=== PATIENT | male | born 1980 | race African-American/Black ===

== ENCOUNTER 2018-02-21 09:57 | Inpatient (IN) | payer OTHER ==
[2018-02-21 10:13] VITALS: BMI 26.2
--- NOTE | 2018-02-21 11:05 | HP ---
CIWA Score - CIWA Score Nausea/Vomitin-Mild Nausea/No Vomiting Muscle Tremors: 1-None Visible, but [place] Anxiety: 1-Mildly Anxious Agitation: 4-Moderately Restless Paroxysmal Sweats: 1-Minimal Palms Moist Orientation: 1-Uncertain about Date Tacttile Disturbances: 0-None Auditory Disturbances: 0-None Visual Disturbances: 1-Very Mild Sensitivity Headache: 2-Mild CIWA-Ar Total Score: 12 Admission ROS BHS - HPI Chief Complaint: I want to clean myself out, start new, do better, stop using. Allergies/Adverse Reactions: Allergies Allergy/AdvReac Type Severity Reaction Status Date / Time eggplant AdvReac Intermediate Swelling Uncoded 02/21/18 11:00 History of Present Illness: 37 yo gentleman here for detox from alcohol, also using cocaine. First time here but states he has had multiple previous detox admissions elsewhere - last one in December in [facility]. No seizures, no black outs. Prefers valium detox. Exam Limitations: Clinical Condition - Ebola screening Have you traveled outside of the country in the last 21 days: No (N) Have you had contact with anyone from an Ebola affected area: No Have you been sick,other than usual withdrawal symptoms: No Do you have a fever: No - Review of Systems Constitutional: Loss of Appetite, Malaise, Night Sweats, Changes in sleep, Weakness EENT: reports: Blurred Vision Respiratory: reports: No Symptoms reported Cardiac: reports: No Symptoms Reported GI: reports: Poor Appetite, Poor Fluid Intake, Indigestion : reports: Frequency Integumentary: reports: Dryness Neuro: reports: Headache, Tremors Hematology: reports: No Symptoms Reported Psychiatric: reports: Judgement Intact, Mood/Affect Appropiate Other Systems: Reviewed and Negative Patient History - Patient Medical History Hx Asthma: No Hx Cancer: No Hx Cardiac Disorders: No Hx Congestive Heart Failure: No Hx Hypertension: No Hx Hypercholesterolemia: No Hx Pacemaker: No HX Cerebrovascular Accident: No Hx Seizures: No Hx Diabetes: No Hx Gastrointestinal Disorders: No Hx Liver Disease: No Hx Genitourinary Disorders: No Hx Sexually Transmitted Disorders: No Hx Renal Disease (ESRD): No Hx Thyroid Disease: No Hx Human Immunodeficiency Virus (HIV): No Hx Hepatitis C: No Hx Depression: No Hx Suicide Attempt: No Hx Bipolar Disorder: No Hx Schizophrenia: No - Patient Surgical History Past Surgical History: No - PPD History Previous Implant?: Yes Documented Results: Negative w/o proof Implanted On Prior R Admission?: No PPD to be Administered?: Yes - Reproductive History Patient is a Female of Child Bearing Age (11 -55 yrs old): No (male) - Smoking Cessation Smoking history: Current every day smoker Have you smoked in the past 12 months: Yes Aproximately how many cigarettes per day: 10 Initiated information on smoking cessation: Yes 'Breaking Loose' booklet given: 02/21/18 (give on floor) - Substance & Tx. History Hx Alcohol Use: Yes Hx Substance Use: Yes Substance Use Type: Alcohol, Cocaine, Marijuana Hx Substance Use Treatment: Yes (detox, rehab) - Substances Abused alcohol Route: Oral Frequency: Daily Amount used: 1 liter of vodka Age of first use: 7 Date of Last Use: 02/20/18 cocaine Route: Smoking Amount used: $150 Age of first use: 22 Date of Last Use: 02/20/18 marijuana Frequency: Daily Amount used: 2 bags Age of first use: 12 Date of Last Use: 02/20/18 Family Disease History - Family Disease History Family Disease History: Other: Father (living, no contact, hx etoh/drugs), Mother (living, hx etoh/drugs), Brother (two living, one gunshot), Sister (two - living, healthy) Admission Physical Exam [facility] - Vital Signs Vital Signs: Vital Signs - 24 hr 02/21/18 10:12 Temperature 96.3 F L Pulse Rate 64 Respiratory 18 Rate Blood Pressure 111/50 - Physical General Appearance: Yes: Nourished, Appropriately Dressed, Mild Distress, Irritable, Anxious HEENTM: Yes: Hearing grossly Normal, Normocephalic, Normal Voice Respiratory: Yes: Normal Breath Sounds, No Respiratory Distress Neck: Yes: No masses,lesions,Nodules, Supple Breast: Yes: Breast Exam Deferred Cardiology: Yes: Regular Rhythm, Regular Rate Abdominal: Yes: Flat, Soft Genitourinary: Yes: Frequency Back: Yes: Normal Inspection Extremities: Yes: Normal Capillary Refill, Normal Inspection Neurological: Yes: Fully Oriented, Alert, Motor Strength 5/5, Normal Mood/Affect , Normal Response Integumentary: Yes: Normal Color, Warm Lymphatic: Yes: Within Normal Limits - Diagnostic (1) Alcohol dependence with withdrawal Current Visit: Yes Status: Acute Qualifiers: Complication of substance-induced condition: uncomplicated Qualified Code(s ): F10.230 - Alcohol dependence with withdrawal, uncomplicated (2) Cocaine dependence Current Visit: Yes Status: Acute Qualifiers: Substance use status: uncomplicated Qualified Code(s): F14.20 - Cocaine dependence, uncomplicated (3) Marijuana dependence Current Visit: Yes Status: Chronic (4) Nicotine dependence Current Visit: Yes Status: Chronic Qualifiers: Nicotine product type: cigarettes Substance use status: uncomplicated Qualified Code(s): F17.210 - Nicotine dependence, cigarettes, uncomplicated Cleared for Admission S - Detox or Rehab [facility] Level of Care: Medically Managed Detox Regimen/Protocol: Librium [facility] Breath Alcohol Content Breath Alcohol Content: 0 Urine Drug Screen - Results Drug Screen Negative: No Urine Drug Screen Results: THC-Marijuana, PITER-Cocaine
[2018-02-21] MEDS ORDERED: diazePAM 5 MG TABLET PO PRN (11:12)
[2018-02-21] MEDS ORDERED: IBUPROFEN 400 MG TABLET (FP) PO PRN (11:12)
[2018-02-21] MEDS ORDERED: MAGNESIUM HYDROX 2400MG/30ML ORAL SUSPENSION 30 ML CUP PO PRN (11:12)
[2018-02-21] MEDS ORDERED: MAG HYDROX/AL HYDROX/SIMETH 30 ML UNIT-DOSE CUP PO PRN (11:12)
[2018-02-21] MEDS ORDERED: hydrOXYzine PAMOATE 25 MG CAPSULE (FP) PO PRN (11:12)
[2018-02-21] MEDS ORDERED: ACETAMINOPHEN 325 MG TABLET (FP) PO PRN (11:12)
[2018-02-21] MEDS ORDERED: LOPERAMIDE HCL 2 MG CAPSULE PO PRN (11:12)
[2018-02-21] MEDS ORDERED: NICOTINE POLACRILEX 4 MG GUM BUC PRN (11:12)
[2018-02-21] MEDS ORDERED: MAGNESIUM CITRATE 300 ML BOTTLE PO PRN (11:12)
[2018-02-21] MEDS ORDERED: diazePAM 5 MG TABLET PO ONE (15:00)
[2018-02-21] MEDS: diazePAM 5 MG TABLET PO SCH ×2 (15:01→22:12)
[2018-02-21] MEDS ORDERED: MELATONIN 5 MG TABLETS PO PRN (22:00)
[2018-02-21] MEDS: THIAMINE HCL 100 MG TABLET (FP) PO SCH (22:12)
[2018-02-22] MEDS: diazePAM 5 MG TABLET PO SCH ×3 (06:48→22:42)
[2018-02-22] MEDS: PRENATAL VITAMINS W/ FOLIC ACID TABLET (FP) PO SCH (10:41)
--- NOTE | 2018-02-22 10:47 | EKG ---
Test Reason : Blood Pressure : / mmHG Vent. Rate : 050 BPM Atrial Rate : 050 BPM P-R Int : 142 ms QRS Dur : 092 ms QT Int : 438 ms P-R-T Axes : 056 070 056 degrees QTc Int : 399 ms SINUS BRADYCARDIA OTHERWISE NORMAL ECG NO PREVIOUS ECGS AVAILABLE Confirmed by DARELL DUQUE MD ([id number]) on 02/22/2018 10:47:42 AM Referred By: Confirmed By:DARELL DUQUE MD
--- NOTE | 2018-02-22 11:09 | PN ---
S CIWA - CIWA Score Nausea/Vomitin-No Nausea/No Vomiting Muscle Tremors: 4-Moderate,w/Arms Extend Anxiety: 3 Agitation: 3 Paroxysmal Sweats: 3 Orientation: 0-Oriented Tacttile Disturbances: 0-None Auditory Disturbances: 0-None Visual Disturbances: 0-None Headache: 0-None Present CIWA-Ar Total Score: 13 S Progress Note (SOAP) Subjective: chills sweats nausea body aches interrupted sleep Objective: 02/22/18 11:07 Vital Signs Temperature 97.9 F 02/22/18 10:00 Pulse Rate 65 02/22/18 10:00 Respiratory Rate 16 02/22/18 10:00 Blood Pressure 111/58 02/22/18 10:00 O2 Sat by Pulse Oximetry (%) labs pending [id number] ambulating no acute distress Assessment: 02/22/18 11:08 withdrawal sx Plan: continue detox increase fluids f/u pending labs
[2018-02-22 11:16] LABS: MCHC 32.6 g/dl (32.0-35.9); MEAN CELL VOLUME 76.9 fl (80-96); MEAN PLT VOLUME 9.4 fl (7.5-11.1); PLATELET COUNT 206 K/MM3 (134-434); RDW 16.2 % (11.9-15.9); WHITE BLOOD COUNT 7.8 K/mm3 (4.0-10.0)
[2018-02-22 11:29] LABS: ALBUMIN 2.9 g/dl (3.4-5.0); ANION GAP 2 (8-16); BLOOD UREA NITROGEN 14 mg/dL (7-18); CALCIUM 8.1 mg/dL (8.5-10.1); CHLORIDE 108 mmol/L (98-107); CO2 31 mmol/L (21-32); CREATININE 1.1 mg/dL (0.7-1.3); GLUCOSE,RANDOM 89 mg/dL (74-106); POTASSIUM 4.3 mmol/L (3.5-5.1); SGOT/AST 19 U/L (15-37); SGPT/ALT 26 U/L (12-78); SODIUM 141 mmol/L (136-145)
[2018-02-22 11:31] LABS: ALK PHOS 49 U/L (45-117); BILIRUBIN,TOTAL 0.4 mg/dL (0.2-1.0); TOT PROT 6.3 g/dl (6.4-8.2)
[2018-02-22 12:44] LABS: SICKLE CELL SCREEN NEGATIVE (NEGATIVE)
[2018-02-22] MEDS: P-EPHED 60MG/TRIPROLIDI 2.5MG TABLET PO PRN (20:14)
[2018-02-22] MEDS: THIAMINE HCL 100 MG TABLET (FP) PO SCH (22:42)
[2018-02-23] MEDS: guaiFENesin/D-METHORPHAN HB 10 ML UNIT-DOSE CUPS PO PRN ×2 (07:26→19:40)
[2018-02-23] MEDS: MENTHOL/PHENOL 1 EACH UD MM PRN ×2 (07:27→21:15)
--- NOTE | 2018-02-23 09:05 | PN ---
[facility] CIWA - CIWA Score Nausea/Vomitin-Mild Nausea/No Vomiting Muscle Tremors: 3 Anxiety: 3 Agitation: 3 Paroxysmal Sweats: 1-Minimal Palms Moist Orientation: 0-Oriented Tacttile Disturbances: 0-None Auditory Disturbances: 0-None Visual Disturbances: 0-None Headache: 0-None Present CIWA-Ar Total Score: 11 S Progress Note (SOAP) Subjective: sweat tremor cold hot body aches mild nausea Objective: 02/23/18 09:05 Vital Signs Temperature 98.1 F 02/23/18 06:00 Pulse Rate 72 02/23/18 06:00 Respiratory Rate 18 02/23/18 06:00 Blood Pressure 134/75 02/23/18 06:00 O2 Sat by Pulse Oximetry (%) Laboratory Last Values WBC 7.8 K/mm3 (4.0-10.0) 02/22/18 08:00 RBC 5.20 M/mm3 (4.00-5.60) 02/22/18 08:00 Hgb 13.0 GM/dL (11.7-16.9) 02/22/18 08:00 Hct 40.0 % (35.4-49) 02/22/18 08:00 MCV 76.9 fl (80-96) L 02/22/18 08:00 MCH 25.0 pg (25.7-33.7) L 02/22/18 08:00 MCHC 32.6 g/dl (32.0-35.9) 02/22/18 08:00 RDW 16.2 % (11.9-15.9) H 02/22/18 08:00 Plt Count 206 K/MM3 (134-434) 02/22/18 08:00 MPV 9.4 fl (7.5-11.1) 02/22/18 08:00 Sickle Cell Screen Negative (NEGATIVE) 02/22/18 08:00 Sodium 141 mmol/L (136-145) 02/22/18 08:00 Potassium 4.3 mmol/L (3.5-5.1) 02/22/18 08:00 Chloride 108 mmol/L (98-107) H 02/22/18 08:00 Carbon Dioxide 31 mmol/L (21-32) 02/22/18 08:00 Anion Gap 2 (8-16) L 02/22/18 08:00 BUN 14 mg/dL (7-18) 02/22/18 08:00 Creatinine 1.1 mg/dL (0.7-1.3) 02/22/18 08:00 Creat Clearance w eGFR > 60 (>60) 02/22/18 08:00 Random Glucose 89 mg/dL (74-106) 02/22/18 08:00 Calcium 8.1 mg/dL (8.5-10.1) L 02/22/18 08:00 Total Bilirubin 0.4 mg/dL (0.2-1.0) 02/22/18 08:00 AST 19 U/L (15-37) 02/22/18 08:00 ALT 26 U/L (12-78) 02/22/18 08:00 Alkaline Phosphatase 49 U/L (45-117) 02/22/18 08:00 Total Protein 6.3 g/dl (6.4-8.2) L 02/22/18 08:00 Albumin 2.9 g/dl (3.4-5.0) L 02/22/18 08:00 RPR Titer Nonreactive (NONREACTIVE) 02/22/18 08:00 HIV 1&2 Antibody Screen Negative 02/22/18 08:00 HIV P24 Antigen Negative 02/22/18 08:00 lab noted Assessment: 02/23/18 09:06 withdrawal sx Plan: continue detox
[2018-02-23] MEDS: PRENATAL VITAMINS W/ FOLIC ACID TABLET (FP) PO SCH (10:24)
[2018-02-23] MEDS: diazePAM 5 MG TABLET PO SCH ×2 (10:25→23:19)
[2018-02-23] MEDS: THIAMINE HCL 100 MG TABLET (FP) PO SCH (23:19)
[2018-02-24] MEDS: MENTHOL/PHENOL 1 EACH UD MM PRN ×2 (04:36→10:30)
[2018-02-24] MEDS: guaiFENesin/D-METHORPHAN HB 10 ML UNIT-DOSE CUPS PO PRN ×2 (04:37→10:16)
[2018-02-24] MEDS: P-EPHED 60MG/TRIPROLIDI 2.5MG TABLET PO PRN (10:16)
[2018-02-24] MEDS: diazePAM 5 MG TABLET PO SCH (10:16)
[2018-02-24] MEDS: PRENATAL VITAMINS W/ FOLIC ACID TABLET (FP) PO SCH (10:16)
--- NOTE | 2018-02-24 10:43 | PN ---
S Progress Note (SOAP) Subjective: feeling better no tremor less sweat tolerated food and fluid well Objective: 02/24/18 10:45 Vital Signs Temperature 98.6 F 02/24/18 10:35 Pulse Rate 99 H 02/24/18 10:35 Respiratory Rate 18 02/24/18 10:35 Blood Pressure 130/71 02/24/18 10:35 O2 Sat by Pulse Oximetry (%) Laboratory Last Values WBC 7.8 K/mm3 (4.0-10.0) 02/22/18 08:00 RBC 5.20 M/mm3 (4.00-5.60) 02/22/18 08:00 Hgb 13.0 GM/dL (11.7-16.9) 02/22/18 08:00 Hct 40.0 % (35.4-49) 02/22/18 08:00 MCV 76.9 fl (80-96) L 02/22/18 08:00 MCH 25.0 pg (25.7-33.7) L 02/22/18 08:00 MCHC 32.6 g/dl (32.0-35.9) 02/22/18 08:00 RDW 16.2 % (11.9-15.9) H 02/22/18 08:00 Plt Count 206 K/MM3 (134-434) 02/22/18 08:00 MPV 9.4 fl (7.5-11.1) 02/22/18 08:00 Sickle Cell Screen Negative (NEGATIVE) 02/22/18 08:00 Sodium 141 mmol/L (136-145) 02/22/18 08:00 Potassium 4.3 mmol/L (3.5-5.1) 02/22/18 08:00 Chloride 108 mmol/L (98-107) H 02/22/18 08:00 Carbon Dioxide 31 mmol/L (21-32) 02/22/18 08:00 Anion Gap 2 (8-16) L 02/22/18 08:00 BUN 14 mg/dL (7-18) 02/22/18 08:00 Creatinine 1.1 mg/dL (0.7-1.3) 02/22/18 08:00 Creat Clearance w eGFR > 60 (>60) 02/22/18 08:00 Random Glucose 89 mg/dL (74-106) 02/22/18 08:00 Calcium 8.1 mg/dL (8.5-10.1) L 02/22/18 08:00 Total Bilirubin 0.4 mg/dL (0.2-1.0) 02/22/18 08:00 AST 19 U/L (15-37) 02/22/18 08:00 ALT 26 U/L (12-78) 02/22/18 08:00 Alkaline Phosphatase 49 U/L (45-117) 02/22/18 08:00 Total Protein 6.3 g/dl (6.4-8.2) L 02/22/18 08:00 Albumin 2.9 g/dl (3.4-5.0) L 02/22/18 08:00 RPR Titer Nonreactive (NONREACTIVE) 02/22/18 08:00 HIV 1&2 Antibody Screen Negative 02/22/18 08:00 HIV P24 Antigen Negative 02/22/18 08:00 lab noted Assessment: 02/24/18 10:45 mild withdrawal sx Plan: medically supervised detox
[2018-02-24 14:05] LABS: URINE APPEARANCE CLEAR; URINE BILIRUBIN NEGATIVE (<2.0 mg/dL); URINE BLOOD NEGATIVE (NEGATIVE); URINE COLOR YELLOW; URINE GLUCOSE (UA) NEGATIVE (NEGATIVE); URINE KETONE NEGATIVE (NEGATIVE); URINE LEUK ESTERASE NEGATIVE (NEGATIVE); URINE NITRITE NEGATIVE (NEGATIVE); URINE PROTEIN NEGATIVE (NEGATIVE); URINE UROBILINOGEN NEGATIVE mg/dL (0.2-1.0)
[2018-02-24 14:28] VITALS: BP 112/69; PULSE 82; TEMP 98.4
--- NOTE | 2018-02-24 16:02 | DS ---
[facility] Detox Discharge Summary Admission Date: 02/21/18 Discharge Date: 02/24/18 - History Present History: Alcohol Dependence Additional Comments: 37 years old male wants to go home today and return 02/25/18 for [facility] - Physical Exam Results Vital Signs: Vital Signs Temperature 98.4 F 02/24/18 14:27 Pulse Rate 82 02/24/18 14:27 Respiratory Rate 20 02/24/18 14:27 Blood Pressure 112/69 02/24/18 14:27 O2 Sat by Pulse Oximetry (%) Pertinent Admission Physical Exam Findings: 37 years old male admitted on 02/21/18 for alcohol withdrawal sx patient denies alcohol withdrawal sx [facility] return 02/24/18 with fresh clothing patient is alert oriented x 3 no acute distress determine to remain sober - Treatment Hospital Course: Detox Protocol Followed, Detoxed Safely, Responded well, Discharged Condition Good, Rehab Referral Accepted Patient has Accepted a Rehab Referral to: [facility] - Medication Discharge Medications: Ambulatory Orders NK [No Known Home Medication] 02/21/18 - Diagnosis (1) Alcohol dependence with withdrawal Current Visit: Yes Status: Acute Qualifiers: Complication of substance-induced condition: uncomplicated Qualified Code(s ): F10.230 - Alcohol dependence with withdrawal, uncomplicated (2) Nicotine dependence Current Visit: Yes Status: Acute Qualifiers: Nicotine product type: cigarettes Substance use status: in withdrawal Qualified Code(s): F17.213 - Nicotine dependence, cigarettes, with withdrawal - AMA Did Patient Leave Against Medical Advice: No
[2018-02-25] MEDS ORDERED: diazePAM 5 MG TABLET PO SCH (10:00)
== END 2018-02-24 16:13 | disposition home or self-care (01) | DRG 774 ==
LOC: YASAS 09:57 → Y6N 12:26 → UNDOADMIN 12:26 → Y6N 13:26
PROVIDERS: ADMIT Internal Medicine; ATTEND Internal Medicine
PROC: HZ2ZZZZ Detoxification Services for Substance Abuse Treatment (ICD-10-PCS; principal; 2018-02-21)
DX: F10.230 Alcohol dependence with withdrawal, uncomplicated (principal); F14.20 Cocaine dependence, uncomplicated; F12.20 Cannabis dependence, uncomplicated; F17.210 Nicotine dependence, cigarettes, uncomplicated
CPT/HCPCS: 36415; 80053; 81003; 85027; 85660; 86593; 87389; 93005; 93010

== ENCOUNTER 2018-03-23 11:50 | Inpatient (IN) | payer OTHER ==
[2018-03-23 12:47] VITALS: BMI 24.3
--- NOTE | 2018-03-23 15:51 | HP ---
CIWA Score - CIWA Score Nausea/Vomitin Muscle Tremors: 3 Anxiety: 3 Agitation: 2 Paroxysmal Sweats: 1-Minimal Palms Moist Orientation: 0-Oriented Tacttile Disturbances: 2-Mild Itch/Numbness/Burn Auditory Disturbances: 2-Mild Harshness/Frighten Visual Disturbances: 1-Very Mild Sensitivity Headache: 2-Mild CIWA-Ar Total Score: 19 Admission ROS BHS - HPI Chief Complaint: i need help to stop drinking alcohol,cocaine ,marijuana,and heroin Allergies/Adverse Reactions: Allergies Allergy/AdvReac Type Severity Reaction Status Date / Time No Known Drug Allergies Allergy Verified 03/23/18 14:56 eggplant AdvReac Intermediate Swelling Uncoded 03/23/18 14:56 History of Present Illness: this 37 years old male with alcohol,cocaine,marijuana,heroin,seeking detox, withdrawal symptom,last detox [facility] 02/21/18 to 02/24/18 nicotine dependence weight loss longest period of sobriety 5 years Exam Limitations: No Limitations - Ebola screening Have you traveled outside of the country in the last 21 days: No Have you been sick,other than usual withdrawal symptoms: No - Review of Systems Constitutional: Chills, Night Sweats, Changes in sleep, Weakness, Weight Stable , Unintentional Wgt. Loss EENT: reports: Tearing, Nose Congestion Respiratory: reports: No Symptoms reported Cardiac: reports: No Symptoms Reported GI: reports: Nausea, Vomiting, Abdominal cramping : reports: No Symptoms Reported Musculoskeletal: reports: Back Pain, Muscle Pain Integumentary: reports: Dryness Neuro: reports: Headache, Tremors Endocrine: reports: No Symptoms Reported Hematology: reports: No Symptoms Reported Psychiatric: reports: No Sypmtoms Reported, Judgement Intact, Mood/Affect Appropiate, Orientated x3 Patient History - Patient Medical History Hx Anemia: No Hx Asthma: No Hx Chronic Obstructive Pulmonary Disease (COPD): No Hx Cancer: No Hx Cardiac Disorders: No Hx Congestive Heart Failure: No Hx Hypertension: No Hx Hypercholesterolemia: No Hx Pacemaker: No HX Cerebrovascular Accident: No Hx Seizures: No Hx Diabetes: No Hx Gastrointestinal Disorders: No Hx Liver Disease: No Hx Genitourinary Disorders: No Hx Sexually Transmitted Disorders: No Hx Renal Disease (ESRD): No Hx Thyroid Disease: No Hx Human Immunodeficiency Virus (HIV): No (last 01/11 negative) Hx Hepatitis C: No Hx Depression: No Hx Suicide Attempt: No Hx Bipolar Disorder: No Hx Schizophrenia: No Other Medical History: no suicidal,no homicidal - Patient Surgical History Past Surgical History: No Hx Neurologic Surgery: No Hx Cataract Extraction: No Hx Cardiac Surgery: No Hx Lung Surgery: No Hx Breast Surgery: No Hx Breast Biopsy: No Hx Abdominal Surgery: No Hx Appendectomy: No Hx Cholecystectomy: No Hx Genitourinary Surgery: No Hx Section: No Hx Orthopedic Surgery: No Anesthesia Reaction: No - PPD History Previous Implant?: Yes Documented Results: Negative w/proof Date: 02/23/18 Results: NEGATIVE 0 mm - Smoking Cessation Smoking history: Current every day smoker Have you smoked in the past 12 months: Yes Aproximately how many cigarettes per day: 20 Hx Chewing Tobacco Use: No Initiated information on smoking cessation: Yes 'Breaking Loose' booklet given: 03/23/18 - Substance & Tx. History Hx Alcohol Use: Yes Hx Substance Use: Yes Substance Use Type: Alcohol, Cocaine, Marijuana Hx Substance Use Treatment: Yes ([facility] 02/21/18 to 02/24/18) - Substances Abused Cocaine Route: Smoking Frequency: Daily Amount used: $200-300 Age of first use: 23 Date of Last Use: 03/22/18 Heroin Route: Inhalation Frequency: Daily Amount used: 4-5 BAGS Age of first use: 29 Date of Last Use: 03/21/18 Marijuana/Hashish Route: Smoking Frequency: 1-2 times per week Amount used: 1-2 BLUNTS Age of first use: 7 Date of Last Use: 03/20/18 Alcohol Route: Oral Frequency: Daily Amount used: 1PINT -1 LITER DAWN Age of first use: 7 Date of Last Use: 03/22/18 Family Disease History - Family Disease History Family Disease History: Other: Father (living, no contact, hx etoh/drugs), Mother (living, hx etoh/drugs), Brother (two living, one gunshot), Sister (two - living, healthy) Admission Physical Exam S - Vital Signs Vital Signs: Vital Signs - 24 hr 03/23/18 12:42 Temperature 97 F L Pulse Rate 68 Respiratory 20 Rate Blood Pressure 122/85 - Physical General Appearance: Yes: Moderate Distress, Tremorous, Irritable, Sweating, Anxious HEENTM: Yes: Normal ENT Inspection, DANA, Pharynx Normal Respiratory: Yes: Lungs Clear, Normal Breath Sounds, No Respiratory Distress Neck: Yes: Within Normal Limits, Supple, Trachea in good position Breast: Yes: Within Normal Limits Cardiology: Yes: Within Normal Limits, Regular Rhythm, Regular Rate, S1, S2 Abdominal: Yes: Within Normal Limits, Normal Bowel Sounds, Non Tender, Flat, Soft Genitourinary: Yes: Within Normal Limits Musculoskeletal: Yes: Back pain, Muscle Pain Extremities: Yes: Within Normal Limits, Normal Range of Motion, Tremors Neurological: Yes: x ray developer II-XII NML intact, Fully Oriented, Alert, Motor Strength 5/5 Integumentary: Yes: Dry Lymphatic: Yes: Within Normal Limits - Diagnostic (1) Alcohol dependence with withdrawal Current Visit: No Status: Acute Qualifiers: Complication of substance-induced condition: uncomplicated Qualified Code(s ): F10.230 - Alcohol dependence with withdrawal, uncomplicated (2) Cocaine dependence Current Visit: No Status: Acute Qualifiers: Substance use status: uncomplicated Qualified Code(s): F14.20 - Cocaine dependence, uncomplicated (3) Nicotine dependence Current Visit: No Status: Acute Qualifiers: Nicotine product type: cigarettes Substance use status: in withdrawal Qualified Code(s): F17.213 - Nicotine dependence, cigarettes, with withdrawal (4) Cannabis dependence Current Visit: Yes Status: Acute (5) Heroin abuse Current Visit: Yes Status: Acute Cleared for Admission [facility] - Detox or Rehab [facility] Level of Care: Medically Managed Detox Regimen/Protocol: Valium S Breath Alcohol Content Breath Alcohol Content: 0 Urine Drug Screen - Results Drug Screen Negative: No Urine Drug Screen Results: PITER-Cocaine, BZO-Benzodiazepines
[2018-03-23] MEDS ORDERED: MAGNESIUM CITRATE 300 ML BOTTLE PO PRN (16:07)
[2018-03-23] MEDS ORDERED: MAGNESIUM HYDROX 2400MG/30ML ORAL SUSPENSION 30 ML CUP PO PRN (16:07)
[2018-03-23] MEDS ORDERED: MENTHOL/PHENOL 1 EACH UD MM PRN (16:07)
[2018-03-23] MEDS ORDERED: guaiFENesin/D-METHORPHAN HB 10 ML UNIT-DOSE CUPS PO PRN (16:07)
[2018-03-23] MEDS ORDERED: ACETAMINOPHEN 325 MG TABLET (FP) PO PRN (16:07)
[2018-03-23] MEDS ORDERED: IBUPROFEN 400 MG TABLET (FP) PO PRN (16:07)
[2018-03-23] MEDS ORDERED: LOPERAMIDE HCL 2 MG CAPSULE PO PRN (16:07)
[2018-03-23] MEDS ORDERED: P-EPHED 60MG/TRIPROLIDI 2.5MG TABLET PO PRN (16:07)
[2018-03-23] MEDS ORDERED: MAG HYDROX/AL HYDROX/SIMETH 30 ML UNIT-DOSE CUP PO PRN (16:07)
[2018-03-23] MEDS ORDERED: diazePAM 5 MG TABLET PO ONE (17:00)
[2018-03-23] MEDS: THIAMINE HCL 100 MG TABLET (FP) PO SCH (22:08)
[2018-03-23] MEDS: MELATONIN 5 MG TABLETS PO PRN (22:08)
[2018-03-23 22:37] LABS: URINE APPEARANCE CLEAR; URINE BILIRUBIN NEGATIVE (<2.0 mg/dL); URINE COLOR STRAW; URINE GLUCOSE (UA) NEGATIVE (NEGATIVE); URINE KETONE NEGATIVE (NEGATIVE)
[2018-03-23 22:38] LABS: URINE LEUK ESTERASE NEGATIVE (NEGATIVE); URINE NITRITE NEGATIVE (NEGATIVE); URINE PROTEIN NEGATIVE (NEGATIVE); URINE UROBILINOGEN NORMAL mg/dL (0.2-1.0)
[2018-03-23] MEDS: diazePAM 5 MG TABLET PO SCH (22:40)
[2018-03-24] MEDS: diazePAM 5 MG TABLET PO SCH ×3 (05:33→22:39)
[2018-03-24 09:51] LABS: HEMATOCRIT 42.4 % (35.4-49); HEMOGLOBIN 13.3 GM/dL (11.7-16.9); MCH 23.8 pg (25.7-33.7); MCHC 31.3 g/dl (32.0-35.9); MEAN CELL VOLUME 76.1 fl (80-96); MEAN PLT VOLUME 9.9 fl (7.5-11.1); PLATELET COUNT 197 K/MM3 (134-434); RBC 5.56 M/mm3 (4.00-5.60); RDW 15.9 % (11.9-15.9); WHITE BLOOD COUNT 5.9 K/mm3 (4.0-10.0)
[2018-03-24 10:08] LABS: CHLORIDE 108 mmol/L (98-107); POTASSIUM 4.1 mmol/L (3.5-5.1); SODIUM 141 mmol/L (136-145)
[2018-03-24] MEDS: PRENATAL VITAMINS W/ FOLIC ACID TABLET (FP) PO SCH (10:24)
[2018-03-24] MEDS: diazePAM 5 MG TABLET PO PRN (10:25)
--- NOTE | 2018-03-24 10:29 | PN ---
S CIWA - CIWA Score Nausea/Vomitin Muscle Tremors: 3 Anxiety: 3 Agitation: 2 Paroxysmal Sweats: 1-Minimal Palms Moist Orientation: 0-Oriented Tacttile Disturbances: 1-Very Mild Itch/Numbness Auditory Disturbances: 1-Very Mild Visual Disturbances: 0-None Headache: 2-Mild CIWA-Ar Total Score: 16 BHS Progress Note (SOAP) Subjective: ALERT,IRRITABLE,ANXIOUS,INTERRUPTED SLEEP,TREMOR Objective: 03/24/18 10:25 Vital Signs Temperature 97.2 F L 03/24/18 06:00 Pulse Rate 63 03/24/18 06:00 Respiratory Rate 18 03/24/18 06:00 Blood Pressure 151/75 03/24/18 06:00 O2 Sat by Pulse Oximetry (%) EKG SINUS BRADYCARDIA 57/MIN PROLONG QT 406/395 NO CHEST PAIN,NO SOB,NO DIZZINESS Laboratory Last Values WBC 5.9 K/mm3 (4.0-10.0) 03/24/18 07:00 RBC 5.56 M/mm3 (4.00-5.60) 03/24/18 07:00 Hgb 13.3 GM/dL (11.7-16.9) 03/24/18 07:00 Hct 42.4 % (35.4-49) 03/24/18 07:00 MCV 76.1 fl (80-96) L 03/24/18 07:00 MCH 23.8 pg (25.7-33.7) L 03/24/18 07:00 MCHC 31.3 g/dl (32.0-35.9) L 03/24/18 07:00 RDW 15.9 % (11.9-15.9) 03/24/18 07:00 Plt Count 197 K/MM3 (134-434) 03/24/18 07:00 MPV 9.9 fl (7.5-11.1) 03/24/18 07:00 Urine Color Straw 03/23/18 22:20 Urine Appearance Clear 03/23/18 22:20 Urine pH 8.0 (5.0-8.0) D 03/23/18 22:20 Ur Specific [place] 1.017 (1.001-1.035) 03/23/18 22:20 Urine Protein Negative (NEGATIVE) 03/23/18 22:20 Urine Glucose (UA) Negative (NEGATIVE) 03/23/18 22:20 Urine Ketones Negative (NEGATIVE) 03/23/18 22:20 Urine Blood Negative (NEGATIVE) 03/23/18 22:20 Urine Nitrite Negative (NEGATIVE) 03/23/18 22:20 Urine Bilirubin Negative (<2.0 mg/dL) 03/23/18 22:20 Urine Urobilinogen Normal mg/dL (0.2-1.0) 03/23/18 22:20 Ur Leukocyte Esterase Negative (NEGATIVE) 03/23/18 22:20 LABS PENDING Assessment: 03/24/18 10:29 WITHDRAWAL SYMPTOM Plan: CONTINUE DETOX
[2018-03-24 10:32] LABS: ALK PHOS 48 U/L (45-117); ANION GAP 5 (8-16); BILIRUBIN,TOTAL 0.2 mg/dL (0.2-1.0); BLOOD UREA NITROGEN 14 mg/dL (7-18); CALCIUM 8.3 mg/dL (8.5-10.1); CO2 28 mmol/L (21-32); GLUCOSE,RANDOM 90 mg/dL (74-106); SGOT/AST 23 U/L (15-37); SGPT/ALT 30 U/L (12-78); TOT PROT 6.5 g/dl (6.4-8.2)
--- NOTE | 2018-03-24 13:27 | EKG ---
Test Reason : Blood Pressure : / mmHG Vent. Rate : 057 BPM Atrial Rate : 057 BPM P-R Int : 142 ms QRS Dur : 082 ms QT Int : 406 ms P-R-T Axes : 061 072 058 degrees QTc Int : 395 ms SINUS BRADYCARDIA OTHERWISE NORMAL ECG WHEN COMPARED WITH ECG OF 21-FEB-2018 14:01, NO SIGNIFICANT CHANGE WAS FOUND Confirmed by MD Billy, Lacho ([id number]) on 03/24/2018 1:27:43 PM Referred By: Rufus Delong Confirmed By:Lacho Cervantes MD
[2018-03-24] MEDS: MELATONIN 5 MG TABLETS PO PRN (22:38)
[2018-03-24] MEDS: THIAMINE HCL 100 MG TABLET (FP) PO SCH (22:38)
--- NOTE | 2018-03-25 10:25 | PN ---
S CIWA - CIWA Score Nausea/Vomitin Muscle Tremors: 3 Anxiety: 3 Agitation: 2 Paroxysmal Sweats: 1-Minimal Palms Moist Orientation: 0-Oriented Tacttile Disturbances: 1-Very Mild Itch/Numbness Auditory Disturbances: 1-Very Mild Visual Disturbances: 0-None Headache: 2-Mild CIWA-Ar Total Score: 16 BHS Progress Note (SOAP) Subjective: ALERT,IRRITABLE,ANXIOUS,INTERRUPTED SLEEP,TREMOR Objective: 03/25/18 10:24 Vital Signs Temperature 97.7 F 03/25/18 09:49 Pulse Rate 73 03/25/18 09:49 Respiratory Rate 18 03/25/18 09:49 Blood Pressure 129/65 03/25/18 09:49 O2 Sat by Pulse Oximetry (%) Laboratory Last Values WBC 5.9 K/mm3 (4.0-10.0) 03/24/18 07:00 RBC 5.56 M/mm3 (4.00-5.60) 03/24/18 07:00 Hgb 13.3 GM/dL (11.7-16.9) 03/24/18 07:00 Hct 42.4 % (35.4-49) 03/24/18 07:00 MCV 76.1 fl (80-96) L 03/24/18 07:00 MCH 23.8 pg (25.7-33.7) L 03/24/18 07:00 MCHC 31.3 g/dl (32.0-35.9) L 03/24/18 07:00 RDW 15.9 % (11.9-15.9) 03/24/18 07:00 Plt Count 197 K/MM3 (134-434) 03/24/18 07:00 MPV 9.9 fl (7.5-11.1) 03/24/18 07:00 Sodium 141 mmol/L (136-145) 03/24/18 07:00 Potassium 4.1 mmol/L (3.5-5.1) 03/24/18 07:00 Chloride 108 mmol/L (98-107) H 03/24/18 07:00 Carbon Dioxide 28 mmol/L (21-32) 03/24/18 07:00 Anion Gap 5 (8-16) L 03/24/18 07:00 BUN 14 mg/dL (7-18) 03/24/18 07:00 Creatinine 1.0 mg/dL (0.7-1.3) 03/24/18 07:00 Creat Clearance w eGFR > 60 (>60) 03/24/18 07:00 Random Glucose 90 mg/dL (74-106) 03/24/18 07:00 Calcium 8.3 mg/dL (8.5-10.1) L 03/24/18 07:00 Total Bilirubin 0.2 mg/dL (0.2-1.0) D 03/24/18 07:00 AST 23 U/L (15-37) D 03/24/18 07:00 ALT 30 U/L (12-78) 03/24/18 07:00 Alkaline Phosphatase 48 U/L (45-117) 03/24/18 07:00 Total Protein 6.5 g/dl (6.4-8.2) 03/24/18 07:00 Albumin 3.0 g/dl (3.4-5.0) L 03/24/18 07:00 Urine Color Straw 03/23/18 22:20 Urine Appearance Clear 03/23/18 22:20 Urine pH 8.0 (5.0-8.0) D 03/23/18 22:20 Ur Specific [place] 1.017 (1.001-1.035) 03/23/18 22:20 Urine Protein Negative (NEGATIVE) 03/23/18 22:20 Urine Glucose (UA) Negative (NEGATIVE) 03/23/18 22:20 Urine Ketones Negative (NEGATIVE) 03/23/18 22:20 Urine Blood Negative (NEGATIVE) 03/23/18 22:20 Urine Nitrite Negative (NEGATIVE) 03/23/18 22:20 Urine Bilirubin Negative (<2.0 mg/dL) 03/23/18 22:20 Urine Urobilinogen Normal mg/dL (0.2-1.0) 03/23/18 22:20 Ur Leukocyte Esterase Negative (NEGATIVE) 03/23/18 22:20 RPR Titer Nonreactive (NONREACTIVE) 03/24/18 08:30 Assessment: 03/25/18 10:25 WITHDRAWAL SYMPTOM Plan: CONTINUE DETOX
[2018-03-25] MEDS: diazePAM 5 MG TABLET PO SCH ×2 (10:26→23:13)
[2018-03-25] MEDS: PRENATAL VITAMINS W/ FOLIC ACID TABLET (FP) PO SCH (10:26)
[2018-03-25] MEDS: THIAMINE HCL 100 MG TABLET (FP) PO SCH (23:13)
[2018-03-26] MEDS: diazePAM 5 MG TABLET PO PRN (02:16)
[2018-03-26] MEDS: diazePAM 5 MG TABLET PO SCH ×2 (10:08→22:11)
[2018-03-26] MEDS: PRENATAL VITAMINS W/ FOLIC ACID TABLET (FP) PO SCH (10:08)
[2018-03-26] MEDS: hydrOXYzine PAMOATE 25 MG CAPSULE (FP) PO PRN ×2 (10:08→22:11)
--- NOTE | 2018-03-26 10:47 | PN ---
BHS Progress Note (SOAP) Subjective: alert,interrupted sleep Objective: 03/26/18 10:46 Vital Signs Temperature 98.2 F 03/26/18 09:51 Pulse Rate 74 03/26/18 09:51 Respiratory Rate 18 03/26/18 09:51 Blood Pressure 153/74 03/26/18 09:51 O2 Sat by Pulse Oximetry (%) Assessment: 03/26/18 10:46 withdrawal symptom Plan: continue detox,discharge in am
[2018-03-26] MEDS: MELATONIN 5 MG TABLETS PO PRN (22:11)
[2018-03-26] MEDS: THIAMINE HCL 100 MG TABLET (FP) PO SCH (22:11)
--- NOTE | 2018-03-27 08:29 | PN ---
S Progress Note (SOAP) Subjective: alert,no complaint Objective: 03/27/18 08:26 Vital Signs Temperature 96.8 F L 03/27/18 06:23 Pulse Rate 62 03/27/18 06:23 Respiratory Rate 18 03/27/18 06:23 Blood Pressure 100/61 03/27/18 06:23 O2 Sat by Pulse Oximetry (%) Assessment: 03/27/18 08:26 detox completed 03/27/18 08:27 no withdrawal symptom Plan: discharge today,follow up with after care program as arrangement
--- NOTE | 2018-03-27 08:34 | DS ---
[facility] Detox Discharge Summary Admission Date: 03/23/18 Discharge Date: 03/27/18 - History Present History: Alcohol Dependence, Cannabis Dependence, Cocaine Dependence Additional Comments: follow up with after care program as arrangement Pertinent Past History: nicotine dependence - Physical Exam Results Vital Signs: Vital Signs Temperature 96.8 F L 03/27/18 06:23 Pulse Rate 62 03/27/18 06:23 Respiratory Rate 18 03/27/18 06:23 Blood Pressure 100/61 03/27/18 06:23 O2 Sat by Pulse Oximetry (%) Pertinent Admission Physical Exam Findings: withdrawal signs and symptom Vital Signs Temperature 96.8 F L 03/27/18 06:23 Pulse Rate 62 03/27/18 06:23 Respiratory Rate 18 03/27/18 06:23 Blood Pressure 100/61 03/27/18 06:23 O2 Sat by Pulse Oximetry (%) Laboratory Last Values WBC 5.9 K/mm3 (4.0-10.0) 03/24/18 07:00 RBC 5.56 M/mm3 (4.00-5.60) 03/24/18 07:00 Hgb 13.3 GM/dL (11.7-16.9) 03/24/18 07:00 Hct 42.4 % (35.4-49) 03/24/18 07:00 MCV 76.1 fl (80-96) L 03/24/18 07:00 MCH 23.8 pg (25.7-33.7) L 03/24/18 07:00 MCHC 31.3 g/dl (32.0-35.9) L 03/24/18 07:00 RDW 15.9 % (11.9-15.9) 03/24/18 07:00 Plt Count 197 K/MM3 (134-434) 03/24/18 07:00 MPV 9.9 fl (7.5-11.1) 03/24/18 07:00 Sodium 141 mmol/L (136-145) 03/24/18 07:00 Potassium 4.1 mmol/L (3.5-5.1) 03/24/18 07:00 Chloride 108 mmol/L (98-107) H 03/24/18 07:00 Carbon Dioxide 28 mmol/L (21-32) 03/24/18 07:00 Anion Gap 5 (8-16) L 03/24/18 07:00 BUN 14 mg/dL (7-18) 03/24/18 07:00 Creatinine 1.0 mg/dL (0.7-1.3) 03/24/18 07:00 Creat Clearance w eGFR > 60 (>60) 03/24/18 07:00 Random Glucose 90 mg/dL (74-106) 03/24/18 07:00 Calcium 8.3 mg/dL (8.5-10.1) L 03/24/18 07:00 Total Bilirubin 0.2 mg/dL (0.2-1.0) D 03/24/18 07:00 AST 23 U/L (15-37) D 03/24/18 07:00 ALT 30 U/L (12-78) 03/24/18 07:00 Alkaline Phosphatase 48 U/L (45-117) 03/24/18 07:00 Total Protein 6.5 g/dl (6.4-8.2) 03/24/18 07:00 Albumin 3.0 g/dl (3.4-5.0) L 03/24/18 07:00 Urine Color Straw 03/23/18 22:20 Urine Appearance Clear 03/23/18 22:20 Urine pH 8.0 (5.0-8.0) D 03/23/18 22:20 Ur Specific [place] 1.017 (1.001-1.035) 03/23/18 22:20 Urine Protein Negative (NEGATIVE) 03/23/18 22:20 Urine Glucose (UA) Negative (NEGATIVE) 03/23/18 22:20 Urine Ketones Negative (NEGATIVE) 03/23/18 22:20 Urine Blood Negative (NEGATIVE) 03/23/18 22:20 Urine Nitrite Negative (NEGATIVE) 03/23/18 22:20 Urine Bilirubin Negative (<2.0 mg/dL) 03/23/18 22:20 Urine Urobilinogen Normal mg/dL (0.2-1.0) 03/23/18 22:20 Ur Leukocyte Esterase Negative (NEGATIVE) 03/23/18 22:20 RPR Titer Nonreactive (NONREACTIVE) 03/24/18 08:30 - Treatment Hospital Course: Detox Protocol Followed, Detoxed Safely, Responded well, Discharged Condition Good Patient has Accepted a Rehab Referral to: declined - Medication Discharge Medications: Ambulatory Orders NK [No Known Home Medication] 02/21/18 - Diagnosis (1) Alcohol dependence with withdrawal Current Visit: No Status: Acute Qualifiers: Complication of substance-induced condition: uncomplicated Qualified Code(s ): F10.230 - Alcohol dependence with withdrawal, uncomplicated (2) Cocaine dependence Current Visit: No Status: Acute Qualifiers: Substance use status: uncomplicated Qualified Code(s): F14.20 - Cocaine dependence, uncomplicated (3) Nicotine dependence Current Visit: No Status: Acute Qualifiers: Nicotine product type: cigarettes Substance use status: in withdrawal Qualified Code(s): F17.213 - Nicotine dependence, cigarettes, with withdrawal (4) Cannabis dependence Current Visit: Yes Status: Acute (5) Heroin abuse Current Visit: Yes Status: Acute - AMA Did Patient Leave Against Medical Advice: No
[2018-03-27] MEDS ORDERED: diazePAM 5 MG TABLET PO SCH (10:00)
[2018-03-27] MEDS: PRENATAL VITAMINS W/ FOLIC ACID TABLET (FP) PO SCH (10:53)
[2018-03-27 13:37] VITALS: BP 124/68; PULSE 71; TEMP 98.2
== END 2018-03-27 16:16 | disposition home or self-care (01) | DRG 773 ==
LOC: YASAS 11:50 → Y6N 16:49
PROVIDERS: ADMIT Surgery; ATTEND Surgery
PROC: HZ2ZZZZ Detoxification Services for Substance Abuse Treatment (ICD-10-PCS; principal; 2018-03-23)
DX: F11.10 Opioid abuse, uncomplicated (principal); F10.230 Alcohol dependence with withdrawal, uncomplicated; F14.20 Cocaine dependence, uncomplicated; F12.20 Cannabis dependence, uncomplicated; F17.213 Nicotine dependence, cigarettes, with withdrawal
CPT/HCPCS: 36415; 80053; 81003; 85027; 86593; 93005; 93010

== ENCOUNTER 2018-06-26 18:33 | Inpatient (IN) | payer OTHER ==
[2018-06-26 19:23] VITALS: BMI 23.1
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
[2018-06-27] MEDS ORDERED: MAGNESIUM HYDROX 2400MG/30ML ORAL SUSPENSION 30 ML CUP PO PRN (00:09)
[2018-06-27] MEDS ORDERED: MENTHOL/PHENOL 1 EACH UD MM PRN (00:09)
[2018-06-27] MEDS ORDERED: LOPERAMIDE HCL 2 MG CAPSULE PO PRN (00:09)
[2018-06-27] MEDS ORDERED: NICOTINE POLACRILEX 2 MG GUM BC PRN (00:09)
[2018-06-27] MEDS ORDERED: P-EPHED 60MG/TRIPROLIDI 2.5MG TABLET PO PRN (00:09)
[2018-06-27] MEDS ORDERED: guaiFENesin/D-METHORPHAN HB 10 ML UNIT-DOSE CUPS PO PRN (00:09)
[2018-06-27] MEDS ORDERED: chlordiazePOXIDE HCL 25 MG CAPSULE PO PRN (00:09)
[2018-06-27] MEDS ORDERED: hydrOXYzine PAMOATE 50 MG CAPSULE (FP) PO PRN (00:09)
[2018-06-27] MEDS ORDERED: IBUPROFEN 400 MG TABLET (FP) PO PRN (00:09)
[2018-06-27] MEDS ORDERED: MAGNESIUM CITRATE 300 ML BOTTLE PO PRN (00:09)
[2018-06-27] MEDS ORDERED: ACETAMINOPHEN 325 MG TABLET (FP) PO PRN (00:09)
[2018-06-27] MEDS ORDERED: MAG HYDROX/AL HYDROX/SIMETH 30 ML UNIT-DOSE CUP PO PRN (00:09)
[2018-06-27] MEDS ORDERED: CEPHALEXIN MONOHYDRATE 500 MG CAPSULE (UD) PO SCH (00:15)
[2018-06-27] MEDS: CEPHALEXIN MONOHYDRATE 500 MG CAPSULE (UD) PO SCH ×5 (00:51→17:49)
[2018-06-27] MEDS: BACITRACIN 0.9 GM PACKET TP SCH ×2 (00:51→10:20)
[2018-06-27] MEDS: chlordiazePOXIDE HCL 25 MG CAPSULE PO SCH ×4 (06:14→22:58)
[2018-06-27 09:54] LABS: HEMATOCRIT 41.9 % (35.4-49); HEMOGLOBIN 13.2 GM/dL (11.7-16.9); MCH 23.9 pg (25.7-33.7); MCHC 31.5 g/dl (32.0-35.9); MEAN CELL VOLUME 75.9 fl (80-96); MEAN PLT VOLUME 9.7 fl (7.5-11.1); PLATELET COUNT 206 K/MM3 (134-434); RBC 5.52 M/mm3 (4.00-5.60); RDW 17.5 % (11.9-15.9)
[2018-06-27] MEDS: NICOTINE 14 MG/24 HOURS TOPICAL PATCH TD SCH (10:20)
[2018-06-27] MEDS: PRENATAL VITAMINS W/ FOLIC ACID TABLET (FP) PO SCH (10:20)
[2018-06-27 10:21] LABS: CHLORIDE 108 mmol/L (98-107); POTASSIUM 4.3 mmol/L (3.5-5.1); SODIUM 142 mmol/L (136-145)
[2018-06-27 10:49] LABS: ALBUMIN 2.9 g/dl (3.4-5.0); ALK PHOS 53 U/L (45-117); ANION GAP 5 MMOL/L (8-16); BILIRUBIN,TOTAL 0.2 mg/dL (0.2-1.0); BLOOD UREA NITROGEN 16 mg/dL (7-18); CALCIUM 8.3 mg/dL (8.5-10.1); CO2 29 mmol/L (21-32); GLUCOSE,RANDOM 88 mg/dL (74-106); SGOT/AST 42 U/L (15-37); SGPT/ALT 41 U/L (12-78); TOT PROT 6.9 g/dl (6.4-8.2)
--- NOTE | 2018-06-27 12:50 | PN ---
S CIWA - CIWA Score Nausea/Vomitin-Mild Nausea/No Vomiting Muscle Tremors: 4-Moderate,w/Arms Extend Anxiety: 3 Agitation: 4-Moderately Restless Paroxysmal Sweats: 1-Minimal Palms Moist Orientation: 0-Oriented Tacttile Disturbances: 0-None Auditory Disturbances: 0-None Visual Disturbances: 0-None Headache: 0-None Present CIWA-Ar Total Score: 13 [facility] Progress Note (SOAP) Subjective: sweat tremor gi distress Objective: 06/27/18 13:03 Vital Signs Temperature 97.1 F L 06/27/18 09:23 Pulse Rate 62 06/27/18 09:23 Respiratory Rate 16 06/27/18 09:23 Blood Pressure 118/70 06/27/18 09:23 O2 Sat by Pulse Oximetry (%) Laboratory Last Values WBC 7.0 K/mm3 (4.0-10.0) 06/27/18 07:40 RBC 5.52 M/mm3 (4.00-5.60) 06/27/18 07:40 Hgb 13.2 GM/dL (11.7-16.9) 06/27/18 07:40 Hct 41.9 % (35.4-49) 06/27/18 07:40 MCV 75.9 fl (80-96) L 06/27/18 07:40 MCH 23.9 pg (25.7-33.7) L 06/27/18 07:40 MCHC 31.5 g/dl (32.0-35.9) L 06/27/18 07:40 RDW 17.5 % (11.9-15.9) H 06/27/18 07:40 Plt Count 206 K/MM3 (134-434) 06/27/18 07:40 MPV 9.7 fl (7.5-11.1) 06/27/18 07:40 Sodium 142 mmol/L (136-145) 06/27/18 07:40 Potassium 4.3 mmol/L (3.5-5.1) 06/27/18 07:40 Chloride 108 mmol/L (98-107) H 06/27/18 07:40 Carbon Dioxide 29 mmol/L (21-32) 06/27/18 07:40 Anion Gap 5 MMOL/L (8-16) L 06/27/18 07:40 BUN 16 mg/dL (7-18) 06/27/18 07:40 Creatinine 1.0 mg/dL (0.7-1.3) 06/27/18 07:40 Creat Clearance w eGFR > 60 (>60) 06/27/18 07:40 Random Glucose 88 mg/dL (74-106) 06/27/18 07:40 Calcium 8.3 mg/dL (8.5-10.1) L 06/27/18 07:40 Total Bilirubin 0.2 mg/dL (0.2-1.0) 06/27/18 07:40 AST 42 U/L (15-37) H D 06/27/18 07:40 ALT 41 U/L (12-78) D 06/27/18 07:40 Alkaline Phosphatase 53 U/L (45-117) 06/27/18 07:40 Total Protein 6.9 g/dl (6.4-8.2) 06/27/18 07:40 Albumin 2.9 g/dl (3.4-5.0) L 06/27/18 07:40 HIV 1&2 Antibody Screen Negative 06/27/18 07:40 HIV P24 Antigen Negative 06/27/18 07:40 lab noted Assessment: 06/27/18 13:03 withdrawal sx left thumb healed laceration "days ago" Plan: continue detox left thumb dressed keep left hand clean and dry and elevated ensure
[2018-06-27 20:29] LABS: URINE APPEARANCE CLOUDY; URINE BILIRUBIN NEGATIVE (<2.0 mg/dL); URINE COLOR YELLOW; URINE GLUCOSE (UA) NEGATIVE (NEGATIVE); URINE KETONE NEGATIVE (NEGATIVE); URINE LEUK ESTERASE NEGATIVE (NEGATIVE); URINE NITRITE NEGATIVE (NEGATIVE); URINE PROTEIN NEGATIVE (NEGATIVE); URINE UROBILINOGEN NEGATIVE mg/dL (0.2-1.0)
[2018-06-27] MEDS ORDERED: MELATONIN 5 MG TABLETS PO PRN (22:00)
[2018-06-27] MEDS: THIAMINE HCL 100 MG TABLET (FP) PO SCH (22:58)
[2018-06-28] MEDS: BACITRACIN 0.9 GM PACKET TP SCH ×3 (00:18→23:21)
[2018-06-28] MEDS: chlordiazePOXIDE HCL 25 MG CAPSULE PO SCH ×4 (06:13→23:21)
[2018-06-28] MEDS: CEPHALEXIN MONOHYDRATE 500 MG CAPSULE (UD) PO SCH ×4 (06:13→23:55)
[2018-06-28] MEDS: PRENATAL VITAMINS W/ FOLIC ACID TABLET (FP) PO SCH (10:04)
[2018-06-28] MEDS: NICOTINE 14 MG/24 HOURS TOPICAL PATCH TD SCH (10:05)
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
--- NOTE | 2018-06-28 13:31 | PN ---
S CIWA - CIWA Score Nausea/Vomitin-No Nausea/No Vomiting Muscle Tremors: 3 Anxiety: 4-Mod. Anxious/Guarded Agitation: 3 Paroxysmal Sweats: 1-Minimal Palms Moist Orientation: 0-Oriented Tacttile Disturbances: 1-Very Mild Itch/Numbness Auditory Disturbances: 0-None Visual Disturbances: 0-None Headache: 0-None Present CIWA-Ar Total Score: 12 [facility] Progress Note (SOAP) Subjective: sweat trouble sleep at night tremor stomach feel better to day Objective: 06/28/18 13:29 Vital Signs Temperature 97.9 F 06/28/18 09:34 Pulse Rate 67 06/28/18 09:34 Respiratory Rate 16 06/28/18 09:34 Blood Pressure 111/52 06/28/18 09:34 O2 Sat by Pulse Oximetry (%) Laboratory Last Values WBC 7.0 K/mm3 (4.0-10.0) 06/27/18 07:40 RBC 5.52 M/mm3 (4.00-5.60) 06/27/18 07:40 Hgb 13.2 GM/dL (11.7-16.9) 06/27/18 07:40 Hct 41.9 % (35.4-49) 06/27/18 07:40 MCV 75.9 fl (80-96) L 06/27/18 07:40 MCH 23.9 pg (25.7-33.7) L 06/27/18 07:40 MCHC 31.5 g/dl (32.0-35.9) L 06/27/18 07:40 RDW 17.5 % (11.9-15.9) H 06/27/18 07:40 Plt Count 206 K/MM3 (134-434) 06/27/18 07:40 MPV 9.7 fl (7.5-11.1) 06/27/18 07:40 Sodium 142 mmol/L (136-145) 06/27/18 07:40 Potassium 4.3 mmol/L (3.5-5.1) 06/27/18 07:40 Chloride 108 mmol/L (98-107) H 06/27/18 07:40 Carbon Dioxide 29 mmol/L (21-32) 06/27/18 07:40 Anion Gap 5 MMOL/L (8-16) L 06/27/18 07:40 BUN 16 mg/dL (7-18) 06/27/18 07:40 Creatinine 1.0 mg/dL (0.7-1.3) 06/27/18 07:40 Creat Clearance w eGFR > 60 (>60) 06/27/18 07:40 Random Glucose 88 mg/dL (74-106) 06/27/18 07:40 Calcium 8.3 mg/dL (8.5-10.1) L 06/27/18 07:40 Total Bilirubin 0.2 mg/dL (0.2-1.0) 06/27/18 07:40 AST 42 U/L (15-37) H D 06/27/18 07:40 ALT 41 U/L (12-78) D 06/27/18 07:40 Alkaline Phosphatase 53 U/L (45-117) 06/27/18 07:40 Total Protein 6.9 g/dl (6.4-8.2) 06/27/18 07:40 Albumin 2.9 g/dl (3.4-5.0) L 06/27/18 07:40 Urine Color Yellow 06/27/18 12:00 Urine Appearance Cloudy 06/27/18 12:00 Urine pH 7.0 (5.0-8.0) 06/27/18 12:00 Ur Specific [place] 1.015 (1.001-1.035) 06/27/18 12:00 Urine Protein Negative (NEGATIVE) 06/27/18 12:00 Urine Glucose (UA) Negative (NEGATIVE) 06/27/18 12:00 Urine Ketones Negative (NEGATIVE) 06/27/18 12:00 Urine Blood Negative (NEGATIVE) 06/27/18 12:00 Urine Nitrite Negative (NEGATIVE) 06/27/18 12:00 Urine Bilirubin Negative (<2.0 mg/dL) 06/27/18 12:00 Urine Urobilinogen Negative mg/dL (0.2-1.0) 06/27/18 12:00 Ur Leukocyte Esterase Negative (NEGATIVE) 06/27/18 12:00 RPR Titer Nonreactive (NONREACTIVE) 06/27/18 07:40 HIV 1&2 Antibody Screen Negative 06/27/18 07:40 HIV P24 Antigen Negative 06/27/18 07:40 lab noted Assessment: 06/28/18 13:30 withdrawal sx Plan: continue detox
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
[2018-06-28] MEDS: THIAMINE HCL 100 MG TABLET (FP) PO SCH (23:21)
[2018-06-29] MEDS: CEPHALEXIN MONOHYDRATE 500 MG CAPSULE (UD) PO SCH ×4 (05:26→23:01)
[2018-06-29] MEDS: chlordiazePOXIDE 5 MG CAPSULE PO SCH ×4 (05:26→23:02)
[2018-06-29] MEDS: NICOTINE 14 MG/24 HOURS TOPICAL PATCH TD SCH (10:01)
[2018-06-29] MEDS: PRENATAL VITAMINS W/ FOLIC ACID TABLET (FP) PO SCH (10:01)
[2018-06-29] MEDS: BACITRACIN 0.9 GM PACKET TP SCH ×2 (10:01→23:01)
--- NOTE | 2018-06-29 11:31 | PN ---
[facility] Progress Note (SOAP) Subjective: less sweat sleep better at night no tremor no gi distress Objective: 06/29/18 11:32 Vital Signs Temperature 98.8 F 06/29/18 09:28 Pulse Rate 67 06/29/18 09:28 Respiratory Rate 18 06/29/18 09:28 Blood Pressure 121/64 06/29/18 09:28 O2 Sat by Pulse Oximetry (%) Laboratory Last Values WBC 7.0 K/mm3 (4.0-10.0) 06/27/18 07:40 RBC 5.52 M/mm3 (4.00-5.60) 06/27/18 07:40 Hgb 13.2 GM/dL (11.7-16.9) 06/27/18 07:40 Hct 41.9 % (35.4-49) 06/27/18 07:40 MCV 75.9 fl (80-96) L 06/27/18 07:40 MCH 23.9 pg (25.7-33.7) L 06/27/18 07:40 MCHC 31.5 g/dl (32.0-35.9) L 06/27/18 07:40 RDW 17.5 % (11.9-15.9) H 06/27/18 07:40 Plt Count 206 K/MM3 (134-434) 06/27/18 07:40 MPV 9.7 fl (7.5-11.1) 06/27/18 07:40 Sodium 142 mmol/L (136-145) 06/27/18 07:40 Potassium 4.3 mmol/L (3.5-5.1) 06/27/18 07:40 Chloride 108 mmol/L (98-107) H 06/27/18 07:40 Carbon Dioxide 29 mmol/L (21-32) 06/27/18 07:40 Anion Gap 5 MMOL/L (8-16) L 06/27/18 07:40 BUN 16 mg/dL (7-18) 06/27/18 07:40 Creatinine 1.0 mg/dL (0.7-1.3) 06/27/18 07:40 Creat Clearance w eGFR > 60 (>60) 06/27/18 07:40 Random Glucose 88 mg/dL (74-106) 06/27/18 07:40 Calcium 8.3 mg/dL (8.5-10.1) L 06/27/18 07:40 Total Bilirubin 0.2 mg/dL (0.2-1.0) 06/27/18 07:40 AST 42 U/L (15-37) H D 06/27/18 07:40 ALT 41 U/L (12-78) D 06/27/18 07:40 Alkaline Phosphatase 53 U/L (45-117) 06/27/18 07:40 Total Protein 6.9 g/dl (6.4-8.2) 06/27/18 07:40 Albumin 2.9 g/dl (3.4-5.0) L 06/27/18 07:40 Urine Color Yellow 06/27/18 12:00 Urine Appearance Cloudy 06/27/18 12:00 Urine pH 7.0 (5.0-8.0) 06/27/18 12:00 Ur Specific [place] 1.015 (1.001-1.035) 06/27/18 12:00 Urine Protein Negative (NEGATIVE) 06/27/18 12:00 Urine Glucose (UA) Negative (NEGATIVE) 06/27/18 12:00 Urine Ketones Negative (NEGATIVE) 06/27/18 12:00 Urine Blood Negative (NEGATIVE) 06/27/18 12:00 Urine Nitrite Negative (NEGATIVE) 06/27/18 12:00 Urine Bilirubin Negative (<2.0 mg/dL) 06/27/18 12:00 Urine Urobilinogen Negative mg/dL (0.2-1.0) 06/27/18 12:00 Ur Leukocyte Esterase Negative (NEGATIVE) 06/27/18 12:00 RPR Titer Nonreactive (NONREACTIVE) 06/27/18 07:40 HIV 1&2 Antibody Screen Negative 06/27/18 07:40 HIV P24 Antigen Negative 06/27/18 07:40 lab noted Assessment: 06/29/18 11:33 mild withdrawal sx Plan: medically supervised detox
--- NOTE | 2018-06-29 14:21 | EKG ---
Test Reason : Blood Pressure : / mmHG Vent. Rate : 052 BPM Atrial Rate : 052 BPM P-R Int : 146 ms QRS Dur : 092 ms QT Int : 444 ms P-R-T Axes : 060 069 059 degrees QTc Int : 412 ms SINUS BRADYCARDIA OTHERWISE NORMAL ECG WHEN COMPARED WITH ECG OF 23-MAR-2018 17:14, NO SIGNIFICANT CHANGE WAS FOUND Confirmed by VERO ALONZO MD ([id number]) on 06/29/2018 2:20:49 PM Referred By: Confirmed By:VERO ALONZO MD
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
[2018-06-29] MEDS: THIAMINE HCL 100 MG TABLET (FP) PO SCH (23:03)
[2018-06-30] MEDS ORDERED: chlordiazePOXIDE HCL 10 MG CAPSULE PO SCH (05:00)
[2018-06-30] MEDS: CEPHALEXIN MONOHYDRATE 500 MG CAPSULE (UD) PO SCH (07:05)
[2018-06-30 07:39] VITALS: BP 118/71; PULSE 62; TEMP 97.5
--- NOTE | 2018-06-30 10:25 | DS ---
[facility] Detox Discharge Summary Admission Date: 06/26/18 Discharge Date: 06/30/18 - History Present History: Alcohol Dependence Additional Comments: 37 YEARS OLD MALE ADMITTED ON 06/26/18 FOR ALCOHOL WITHDRAWAL SX COMPLETED DETOX REGIMEN TOLERATED WELL DENIES ALCOHOL WITHDRAWAL SX ALERT ORIENTED X 3 NO ACUTE DISTRESS AFTERCARE REVELATION PATENT WANTS TO RETURN HOME TODAY AND AGREES TO PATIENT [facility] ADMISSION IN A LATER DAY - Physical Exam Results Vital Signs: Vital Signs Temperature 97.5 F L 06/30/18 07:38 Pulse Rate 62 06/30/18 07:38 Respiratory Rate 18 06/30/18 07:38 Blood Pressure 118/71 06/30/18 07:38 O2 Sat by Pulse Oximetry (%) Pertinent Admission Physical Exam Findings: ALCOHOL WITHDRAWAL SX Vital Signs Temperature 97.5 F L 06/30/18 07:38 Pulse Rate 62 06/30/18 07:38 Respiratory Rate 18 06/30/18 07:38 Blood Pressure 118/71 06/30/18 07:38 O2 Sat by Pulse Oximetry (%) Laboratory Last Values WBC 7.0 K/mm3 (4.0-10.0) 06/27/18 07:40 RBC 5.52 M/mm3 (4.00-5.60) 06/27/18 07:40 Hgb 13.2 GM/dL (11.7-16.9) 06/27/18 07:40 Hct 41.9 % (35.4-49) 06/27/18 07:40 MCV 75.9 fl (80-96) L 06/27/18 07:40 MCH 23.9 pg (25.7-33.7) L 06/27/18 07:40 MCHC 31.5 g/dl (32.0-35.9) L 06/27/18 07:40 RDW 17.5 % (11.9-15.9) H 06/27/18 07:40 Plt Count 206 K/MM3 (134-434) 06/27/18 07:40 MPV 9.7 fl (7.5-11.1) 06/27/18 07:40 Sodium 142 mmol/L (136-145) 06/27/18 07:40 Potassium 4.3 mmol/L (3.5-5.1) 06/27/18 07:40 Chloride 108 mmol/L (98-107) H 06/27/18 07:40 Carbon Dioxide 29 mmol/L (21-32) 06/27/18 07:40 Anion Gap 5 MMOL/L (8-16) L 06/27/18 07:40 BUN 16 mg/dL (7-18) 06/27/18 07:40 Creatinine 1.0 mg/dL (0.7-1.3) 06/27/18 07:40 Creat Clearance w eGFR > 60 (>60) 06/27/18 07:40 Random Glucose 88 mg/dL (74-106) 06/27/18 07:40 Calcium 8.3 mg/dL (8.5-10.1) L 06/27/18 07:40 Total Bilirubin 0.2 mg/dL (0.2-1.0) 06/27/18 07:40 AST 42 U/L (15-37) H D 06/27/18 07:40 ALT 41 U/L (12-78) D 06/27/18 07:40 Alkaline Phosphatase 53 U/L (45-117) 06/27/18 07:40 Total Protein 6.9 g/dl (6.4-8.2) 06/27/18 07:40 Albumin 2.9 g/dl (3.4-5.0) L 06/27/18 07:40 Urine Color Yellow 06/27/18 12:00 Urine Appearance Cloudy 06/27/18 12:00 Urine pH 7.0 (5.0-8.0) 06/27/18 12:00 Ur Specific Hector 1.015 (1.001-1.035) 06/27/18 12:00 Urine Protein Negative (NEGATIVE) 06/27/18 12:00 Urine Glucose (UA) Negative (NEGATIVE) 06/27/18 12:00 Urine Ketones Negative (NEGATIVE) 06/27/18 12:00 Urine Blood Negative (NEGATIVE) 06/27/18 12:00 Urine Nitrite Negative (NEGATIVE) 06/27/18 12:00 Urine Bilirubin Negative (<2.0 mg/dL) 06/27/18 12:00 Urine Urobilinogen Negative mg/dL (0.2-1.0) 06/27/18 12:00 Ur Leukocyte Esterase Negative (NEGATIVE) 06/27/18 12:00 RPR Titer Nonreactive (NONREACTIVE) 06/27/18 07:40 HIV 1&2 Antibody Screen Negative 06/27/18 07:40 HIV P24 Antigen Negative 06/27/18 07:40 LAB NOTED - Treatment Hospital Course: Detox Protocol Followed, Detoxed Safely, Responded well, Discharged Condition Good, Rehab Referral Accepted Patient has Accepted a Rehab Referral to: [facility] - Medication Discharge Medications: Ambulatory Orders Bupropion HCl [Wellbutrin -] 100 mg PO DAILY 06/26/18 Risperidone [Risperdal] 1 mg PO BID 06/26/18 - Diagnosis (1) Alcohol dependence with withdrawal Status: Acute Qualifiers: Complication of substance-induced condition: uncomplicated Qualified Code(s ): F10.230 - Alcohol dependence with withdrawal, uncomplicated (2) Nicotine dependence Status: Acute Qualifiers: Nicotine product type: cigarettes Substance use status: in withdrawal Qualified Code(s): F17.213 - Nicotine dependence, cigarettes, with withdrawal - AMA Did Patient Leave Against Medical Advice: No
== END 2018-06-30 08:48 | disposition home or self-care (01) | DRG 773 ==
LOC: YASAS 18:33 → Y6N 23:12
PROC: HZ2ZZZZ Detoxification Services for Substance Abuse Treatment (ICD-10-PCS; principal; 2018-06-26)
DX: F10.230 Alcohol dependence with withdrawal, uncomplicated (principal); F11.10 Opioid abuse, uncomplicated; F14.20 Cocaine dependence, uncomplicated; F17.213 Nicotine dependence, cigarettes, with withdrawal; F41.9 Anxiety disorder, unspecified; F32.9 Major depressive disorder, single episode, unspecified
CPT/HCPCS: 36415; 80053; 81003; 85027; 86593; 87389; 93005; 93010

== ENCOUNTER 2018-06-29 18:22 | Emergency (ER) | payer OTHER ==
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
[2018-06-29 18:49] VITALS: BP 127/78; PULSE 67; TEMP 98.5; BMI 23.1
--- NOTE | 2018-06-29 18:52 | PDOC ---
Attending Attestation - Resident Resident Name: Daniele Gimenez - ED Attending Attestation I have performed the following: I have examined & evaluated the patient, The case was reviewed & discussed with the resident, I agree w/resident's findings & plan, Exceptions are as noted - HPI HPI: 06/29/18 18:39 37-year-old male brought in by ambulance from [facility] for evaluation of a scrotal laceration that is 10 days old - Physicial Exam PE: 06/29/18 18:52 slender 37 yo male in no acute distress head ncat neck supple neck supple lungs cta b/l cvs [id number] and nontender old laceration w 3 remaining sutures and a small wound dehiscence , no purulence,no cellulitis,no erythema ext no erythema neuro axox3,moving all extremities purposefully,no gross focal neuro deficits - Medical Decision Making 06/29/18 18:54 remaining old sutures removed by [facility] I called [facility] and spoke with ANIMATION DIRECTOR Ms. Cherry and explained the wound did not show evidence of infection and remaining sutures were removed plan d/c back to [facility]
== END 2018-06-29 19:37 | disposition home or self-care (01) ==
LOC: JER 18:22
DX: Z48.817 Encounter for surgical aftercare following surgery on the skin and subcutaneous tissue (principal); Z48.02 Encounter for removal of sutures
CPT/HCPCS: 99282-25

== ENCOUNTER 2022-04-22 18:56 | Inpatient (IN) | payer OTHER ==
[2022-04-22 20:51] VITALS: BMI 32.1
[2022-04-22] MEDS ORDERED: BENZOCAINE/MENTHOL (CHLORASEPTIC ) LOZENGE MM PRN (22:24)
[2022-04-22] MEDS ORDERED: BISMUTH SUBSALICYLATE 524 MG/30 ML PO PRN (22:24)
[2022-04-22] MEDS ORDERED: IBUPROFEN 600 MG TABLET (FP) PO PRN (22:24)
[2022-04-22] MEDS ORDERED: chlordiazePOXIDE HCL 25 MG CAPSULE PO PRN (22:24)
[2022-04-22] MEDS ORDERED: NICOTINE 10 MG CARTRIDGE (INHALER) IH PRN (22:24)
[2022-04-22] MEDS ORDERED: ONDANSETRON *ODT* 4 MG TABLET SL PRN (22:24)
[2022-04-22] MEDS ORDERED: MAGNESIUM HYDROX 2400MG/30ML ORAL SUSPENSION 30 ML CUP PO PRN (22:24)
[2022-04-22] MEDS ORDERED: DICYCLOMINE HCL 10 MG CAPSULE PO PRN (22:24)
[2022-04-22] MEDS ORDERED: METHOCARBAMOL 500 MG TABLET PO PRN (22:24)
[2022-04-22] MEDS ORDERED: IBUPROFEN 400 MG TABLET (FP) PO PRN (22:24)
[2022-04-22] MEDS ORDERED: ACETAMINOPHEN 325 MG TABLET (FP) PO PRN ×2 (22:24)
[2022-04-22] MEDS ORDERED: MAGNESIUM CITRATE 300 ML BOTTLE PO PRN (22:24)
[2022-04-22] MEDS ORDERED: MAG HYDROX/AL HYDROX/SIMETH 30 ML UNIT-DOSE CUP PO PRN (22:24)
[2022-04-22] MEDS ORDERED: LOPERAMIDE HCL 2 MG CAPSULE PO PRN (22:24)
[2022-04-23] MEDS: chlordiazePOXIDE HCL 25 MG CAPSULE PO SCH ×5 (01:15→23:57)
[2022-04-23] MEDS: PRENATAL VITAMINS W/ FOLIC ACID TABLET (FP) PO SCH (10:48)
[2022-04-23 10:51] LABS: HEMATOCRIT 43.2 % (35.4-49); HEMOGLOBIN 13.8 GM/dL (11.7-16.9); MCH 23.9 pg (25.7-33.7); MCHC 31.9 g/dl (32.0-35.9); MEAN CELL VOLUME 74.9 fl (80-96); MEAN PLT VOLUME 10.4 fl (7.5-11.1); PLATELET COUNT 191 10^3/uL (134-434); RBC 5.77 M/mm3 (4.00-5.60); RDW 17.3 % (11.9-15.9); WHITE BLOOD COUNT 6.1 K/mm3 (4.0-10.0)
[2022-04-23] MEDS: NICOTINE 14 MG/24 HOURS TOPICAL PATCH TD SCH (10:51)
[2022-04-23 10:58] LABS: CALCIUM 8.7 mg/dL (8.5-10.1)
[2022-04-23 10:59] LABS: ALBUMIN 3.5 g/dl (3.4-5.0); BLOOD UREA NITROGEN 19.8 mg/dL (7-18); CREATININE 1.1 mg/dL (0.55-1.3)
[2022-04-23 11:03] LABS: BILIRUBIN,TOTAL 0.7 mg/dL (0.2-1)
[2022-04-23] MEDS: THIAMINE HCL 100 MG TABLET (FP) PO SCH (23:56)
[2022-04-23] MEDS: MELATONIN 5 MG TABLETS PO SCH (23:56)
[2022-04-24] MEDS: chlordiazePOXIDE HCL 25 MG CAPSULE PO SCH ×3 (06:04→18:02)
[2022-04-24] MEDS: PRENATAL VITAMINS W/ FOLIC ACID TABLET (FP) PO SCH (10:23)
[2022-04-24] MEDS: NICOTINE 14 MG/24 HOURS TOPICAL PATCH TD SCH (10:23)
[2022-04-25] MEDS ORDERED: chlordiazePOXIDE HCL 10 MG CAPSULE PO PRN
[2022-04-25] MEDS: MELATONIN 5 MG TABLETS PO SCH ×2 (00:11→22:46)
[2022-04-25] MEDS: chlordiazePOXIDE HCL 25 MG CAPSULE PO SCH (00:12)
[2022-04-25] MEDS: THIAMINE HCL 100 MG TABLET (FP) PO SCH ×2 (00:12→22:46)
[2022-04-25] MEDS: chlordiazePOXIDE HCL 10 MG CAPSULE PO SCH ×4 (06:28→22:46)
[2022-04-25] MEDS: PRENATAL VITAMINS W/ FOLIC ACID TABLET (FP) PO SCH (10:30)
[2022-04-25] MEDS: NICOTINE 14 MG/24 HOURS TOPICAL PATCH TD SCH (10:32)
[2022-04-26] MEDS: chlordiazePOXIDE HCL 10 MG CAPSULE PO SCH ×3 (06:14→17:42)
[2022-04-26] MEDS: NICOTINE 14 MG/24 HOURS TOPICAL PATCH TD SCH (09:48)
[2022-04-26] MEDS: PRENATAL VITAMINS W/ FOLIC ACID TABLET (FP) PO SCH (09:49)
[2022-04-26] MEDS: MELATONIN 5 MG TABLETS PO SCH (22:44)
[2022-04-26] MEDS: THIAMINE HCL 100 MG TABLET (FP) PO SCH (22:44)
[2022-04-27] MEDS ORDERED: chlordiazePOXIDE HCL 10 MG CAPSULE PO ONE (05:00)
[2022-04-27 09:36] VITALS: BP 112/78; PULSE 71; TEMP 97.4
== END 2022-04-27 09:44 | disposition home or self-care (01) | DRG 774 ==
LOC: YASAS 18:56 → Y6N 23:37
PROVIDERS: ADMIT Allergy & Immunology; ATTEND Surgery
PROC: HZ2ZZZZ Detoxification Services for Substance Abuse Treatment (ICD-10-PCS; principal; 2022-04-22)
DX: F10.230 Alcohol dependence with withdrawal, uncomplicated (principal); F14.20 Cocaine dependence, uncomplicated; F12.20 Cannabis dependence, uncomplicated; F17.210 Nicotine dependence, cigarettes, uncomplicated; F19.24 Other psychoactive substance dependence with psychoactive substance-induced mood disorder; F19.282 Other psychoactive substance dependence with psychoactive substance-induced sleep disorder; F32.A Depression, unspecified; F41.9 Anxiety disorder, unspecified; W01.198A Fall on same level from slipping, tripping and stumbling with subsequent striking against other object, initial encounter; Y93.01 Activity, walking, marching and hiking; Y92.230 Patient room in hospital as the place of occurrence of the external cause; Z91.018 Allergy to other foods; Z56.0 Unemployment, unspecified; Z59.01 Sheltered homelessness
CPT/HCPCS: 36415; 80053; 85027; 86780; 93005; 93010; C9803-CS; U0003; U0005